=== PATIENT | male | born 1955 | race Caucasian/White ===

== ENCOUNTER 2021-12-16 22:23 | Emergency (ER) | payer BC ==
[2021-12-16] MEDS ORDERED: Sodium Chloride 0.9% 10 ML Syringe FLUSH PRN (22:37)
[2021-12-16 23:23] LABS: ESTIMATED GFR 56 mL/min (>60)
[2021-12-16] MEDS ORDERED: Pantoprazole 40 MG Vial IVPUSH SCH (23:45)
== END 2021-12-17 00:48 | disposition home or self-care (01) ==
LOC: JP.ED 22:23
DX: K92.1 Melena (principal); C22.8 Malignant neoplasm of liver, primary, unspecified as to type; D68.9 Coagulation defect, unspecified; Z88.8 Allergy status to other drugs, medicaments and biological substances; Z79.01 Long term (current) use of anticoagulants; Z79.899 Other long term (current) drug therapy; Z86.718 Personal history of other venous thrombosis and embolism
CPT/HCPCS: 36415; 80053; 82272; 85025; 86850; 86900; 86901; 86902; 96374; 99284; C9113; J1642; J3490